=== PATIENT | female | born 1945 | race Two or more races ===

== ENCOUNTER 2017-11-07 15:07 | Emergency (ER) | payer MEDICARE, MEDICAID ==
[~2017-11-07] VITALS: Ht 152.4 cm; Wt 68.0 kg
[~2017-11-07 15:07] MED LIST: ASPI-1152 PO; BENA10TA9 PO; BLOO-697 IN; CALC500T52 PO; DAPA10TA PO; ERGO500014 PO; ESOM40CA PO; GABA-532 PO; GLIM4TAB2 PO; INSU100V3 SQ; LINA1TAB7 PO; MECL-102 PO; ROSU20TA PO; TRAM50TA2 PO
[2017-11-07 15:24] VITALS: BP 111/69
== END 2017-11-07 16:30 | disposition home or self-care (01) ==
LOC: ER 15:16
DX: S80.861A Insect bite (nonvenomous), right lower leg, initial encounter (principal); S40.862A Insect bite (nonvenomous) of left upper arm, initial encounter; S40.861A Insect bite (nonvenomous) of right upper arm, initial encounter; L25.9 Unspecified contact dermatitis, unspecified cause; R42 Dizziness and giddiness; I10 Essential (primary) hypertension; K21.9 Gastro-esophageal reflux disease without esophagitis; E78.00 Pure hypercholesterolemia, unspecified; F17.200 Nicotine dependence, unspecified, uncomplicated; Z88.0 Allergy status to penicillin; Z60.2 Problems related to living alone; Z79.4 Long term (current) use of insulin; Z79.82 Long term (current) use of aspirin; W57.XXXA Bitten or stung by nonvenomous insect and other nonvenomous arthropods, initial encounter; Y93.89 Activity, other specified; Y92.89 Other specified places as the place of occurrence of the external cause; Y99.8 Other external cause status
CPT/HCPCS: 99283; A4606; Z7610